=== PATIENT | female | born 1990 | race African-American/Black ===

== ENCOUNTER 2017-02-05 01:18 | Emergency (ER) | payer SELFPAY ==
--- NOTE | ~2017-02-05 | CR63 ---
[facility] A Service of [facility] & [facility] RADIOLOGY TEXT RESULTS PATIENT: VALARIE MORALES LOCATION: [facility]FT[facility] : [birth year] UNIT #: [id number] AGE: [address]: LANETTE LEYVA SEX: F ORDER DR: [id number] [facility] [address] [place], [place] [address] [id number] E MR#: [id number] Acc #: [id number] NAME: VALARIE MORALES : 1990 SEX: F STUDY DATE/TIME: 02/05/2017 02:42 UNIT: [facility] ROOM: STUDY DESCRIPTION: CR Chest 2 View Attending Physician: Lanette Leyva Aprn Ordering Physician: Lanette Leyva Aprn Primary Care Physician: Primary Care Physician No MEDICAL IMAGING REPORT This report is preliminary unless electronic signature is present EXAM Chest x-ray, 02/05/2017 at 02:42 INDICATION Midchest pain that started today. FINDINGS 2 views of the chest were obtained. No comparison. Heart is enlarged. Lungs are clear. Vascularity is normal. There is no pneumothorax. There is dextroscoliosis in the thoracic spine. IMPRESSION Cardiomegaly and scoliosis. Dictated by... Bandar Barreto Jr., M.D. THIS IS AN ELECTRONICALLY VERIFIED REPORT Bandar Barreto Jr., M.D. at 02/06/2017 3:14 AM CHRISTY/maikel TD: 02/05/2017 21:17 JOB #: [id number] MEDICAL IMAGING REPORT Page 1 of 1 COPY
--- NOTE | ~2017-02-05 | EKG ---
PATIENT: VALARIE MORALES UNIT #: [id number] Ventricular Rate: 66 BPM Atrial Rate: 66 BPM P-R Interval: 154 ms QRS Duration: 88 ms Q-T Interval: 452 ms QTC Calculation(Bezet): 473 ms P [place]: 58 degrees Calculated R [place]: 33 degrees Calculated T [place]: 32 degrees Diagnosis Line: Normal sinus rhythm Diagnosis Line: Possible Left atrial enlargement Diagnosis Line: ST elevation, consider early repolarization, Diagnosis Line: pericarditis, or injury Diagnosis Line: Borderline ECG Diagnosis Line: No previous ECGs available Diagnosis Line: Confirmed by TUCKER CORLEY MD ([id number]) on 02/05/2017 Diagnosis Line: 3:11:02 PM INTERPRETING MD: JORY SERRANO
== END 2017-02-05 03:47 | disposition left against medical advice (07) ==
LOC: CED 01:18 → CFTX 02:11
DX: R07.9 Chest pain, unspecified (principal); F41.9 Anxiety disorder, unspecified; R51 Headache; M79.601 Pain in right arm; F17.210 Nicotine dependence, cigarettes, uncomplicated; Z79.899 Other long term (current) drug therapy; Z88.8 Allergy status to other drugs, medicaments and biological substances
CPT/HCPCS: 71020; 93005; 99285